=== PATIENT | female | born 1975 | race Asian ===

== ENCOUNTER → 2018-03-03 | Outpatient (CLI) | payer OTHER ==
[~2018-03-03] MED LIST: ATEN25TA PO; BACL-19 PO; DOCU100T PO; HYDR-3240 PO; LEVO125T PO; MULT-516 PO; TRIA0.2576 PO
== END | disposition home or self-care (01) ==
LOC: STAR 13:53
PROVIDERS: ATTEND Surgery
DX: Z02.9 Encounter for administrative examinations, unspecified (principal)

== ENCOUNTER 2018-03-08 07:25 | Inpatient (IN) | payer OTHER ==
[2018-03-03 14:19] VITALS: BP 108/77
[~2018-03-08] VITALS: Ht 162.6 cm; Wt 59.5 kg
[~2018-03-08 07:25] MED LIST changes: +BUPIVACAINE/PF-EPI 0.5% 1:200K ONE; -LEVO125T PO
[2018-03-08] MEDS ORDERED: LACTATED RINGERS 1,000 ML IV SCH (08:09)
[2018-03-08] MEDS ORDERED: LIDOCAINE-MPF 1%, 2ML ONE (08:18)
[2018-03-08] MEDS ORDERED: LIDOCAINE-MPF 1%, 2ML INFIL ONE (08:30)
[2018-03-08 08:38] LABS: HCG UR SG 1.011 (1.003-1.030)
[2018-03-08] MEDS ORDERED: PROPOFOL 50 ML ONE (09:27)
[2018-03-08] MEDS ORDERED: MIDAZOLAM 1 MG/ML, 2ML ONE ×2 (09:27→12:20)
[2018-03-08] MEDS ORDERED: FENTANYL PF 250 MCG/5ML ONE (09:27)
[2018-03-08] MEDS ORDERED: ONDANSETRON 2MG/ML, 2ML IV PRN ×2 (10:30→14:00)
[2018-03-08] MEDS ORDERED: ACETAMINOPHEN 325 MG TABLET PO PRN ×2 (10:30→13:30)
[2018-03-08] MEDS ORDERED: EPHEDRINE 50 MG/ML, 1ML IM PRN (10:30)
[2018-03-08] MEDS ORDERED: PROMETHAZINE 12.5 MG SUPP PR PRN (10:30)
[2018-03-08] MEDS ORDERED: MIDAZOLAM 1 MG/ML, 2ML IV PRN (10:30)
[2018-03-08] MEDS ORDERED: ONDANSETRON ODT 8 MG PO PRN (10:30)
[2018-03-08] MEDS ORDERED: PROCHLORPERAZINE 5 MG/ML, 2ML IV PRN (10:30)
[2018-03-08] MEDS ORDERED: DIPHENHYDRAMINE 50 MG/ML, 1ML IM PRN (10:30)
[2018-03-08] MEDS ORDERED: MORPHINE SULFATE 4 MG/ML, 1ML IVPush PRN (10:30)
[2018-03-08] MEDS ORDERED: PROMETHAZINE 25 MG/ML, 1ML IV PRN (10:30)
[2018-03-08] MEDS ORDERED: MEPERIDINE/PF 25MG/0.5ML IVPush PRN (10:30)
[2018-03-08] MEDS ORDERED: PROMETHAZINE 25 MG SUPP PR PRN (10:30)
[2018-03-08] MEDS ORDERED: FENTANYL PF 100 MCG/2ML IV PRN (10:30)
[2018-03-08] MEDS ORDERED: OXYcodone 5 MG/5 ML ORAL.SOL UDC ONE (12:03)
[2018-03-08] MEDS ORDERED: MORPHINE SULFATE 4 MG/ML, 1ML ONE (12:03)
[2018-03-08] MEDS ORDERED: OXYcodone 5 MG/5 ML ORAL.SOL UDC PO PRN (12:30)
[2018-03-08 13:15] VITALS: BP 136/86
[2018-03-08] MEDS ORDERED: ACETAMINOPHEN 650 MG SUPP PR PRN (13:30)
[2018-03-08] MEDS ORDERED: hydrALAzine 20 MG/ML, 1ML IV PRN (14:00)
[2018-03-08] MEDS ORDERED: ZOLPIDEM 5MG TABLET PO PRN (14:00)
[2018-03-08] MEDS: CALCIUM/VITAMIN D3 250-125 TABLET PO SCH ×2 (14:04→16:51)
[2018-03-08] MEDS: HYDROcodone/APAP 5/325 TABLET PO PRN ×2 (15:53→20:13)
[2018-03-08] MEDS ORDERED: SUCCINYLCHOLINE 20 MG/ML, 10ML ONE (16:16)
[2018-03-08] MEDS ORDERED: CEFAZOLIN 1,000 MG ONE (16:16)
[2018-03-08] MEDS ORDERED: PROPOFOL 10 MG/ML, 20ML ONE (16:16)
[2018-03-08] MEDS ORDERED: ROCURONIUM 10MG/ML,5ML ONE (16:16)
[2018-03-08] MEDS ORDERED: ONDANSETRON 2MG/ML, 2ML ONE (16:16)
[2018-03-08] MEDS ORDERED: DEXAMETHASONE 4 MG/ML, 1ML ONE (16:16)
[2018-03-08 18:48] VITALS: BP 96/61
[2018-03-08] MEDS: DOCUSATE 100 MG CAPSULE PO SCH (20:12)
[2018-03-08] MEDS: SODIUM CHLORIDE FLUSH 10ML SYR IVF SCH (20:13)
[2018-03-08] MEDS ORDERED: BACLOFEN 10 MG TABLET PO SCH (21:00)
[2018-03-08] MEDS ORDERED: ATENOLOL 25 MG TABLET PO SCH (21:00)
[2018-03-08 23:35] VITALS: BP 102/66
[2018-03-09 02:59] VITALS: BP 89/58
[2018-03-09] MEDS ORDERED: LEVOTHYROXINE 125 MCG TABLET PO SCH (06:00)
[2018-03-09 07:09] VITALS: BP 87/55
[2018-03-09] MEDS: DOCUSATE 100 MG CAPSULE PO SCH (07:49)
[2018-03-09] MEDS: CALCIUM/VITAMIN D3 250-125 TABLET PO SCH (07:49)
[2018-03-09] MEDS: HYDROcodone/APAP 5/325 TABLET PO PRN (07:49)
[2018-03-09] MEDS ORDERED: HYDR-3240 PO (08:59)
[2018-03-09] MEDS: SODIUM CHLORIDE FLUSH 10ML SYR IVF SCH (09:00)
[2018-03-09] MEDS ORDERED: LEVO125T PO (09:00)
[2018-03-09 09:43] VITALS: BP 96/64
[2018-03-09] MEDS ORDERED: ONDANSETRON 4 MG TABLET ONE (10:54)
[2018-03-09] MEDS ORDERED: ONDANSETRON 4 MG TABLET PO PRN (11:00)
== END 2018-03-09 10:50 | disposition home or self-care (01) | DRG 627 ==
LOC: OUT 07:25 → 4NOR 13:00 → OUT 13:47 → DCLOUNGE 03-09 10:27
PROVIDERS: ADMIT Surgery; ATTEND Surgery
PROC: 07T10ZZ Resection of Right Neck Lymphatic, Open Approach (ICD-10-PCS; 2018-03-08)
PROC: 4A11X4G Monitoring of Peripheral Nervous Electrical Activity, Intraoperative, External Approach (ICD-10-PCS; 2018-03-08)
PROC: 0GTK0ZZ Resection of Thyroid Gland, Open Approach (ICD-10-PCS; principal; 2018-03-08 09:45)
DX: C73 Malignant neoplasm of thyroid gland (principal); Z79.899 Other long term (current) drug therapy; Z80.42 Family history of malignant neoplasm of prostate; Z80.49 Family history of malignant neoplasm of other genital organs; Z82.49 Family history of ischemic heart disease and other diseases of the circulatory system; Z82.3 Family history of stroke; Z98.51 Tubal ligation status; Z87.891 Personal history of nicotine dependence
CPT/HCPCS: 36415; 81025; 82310; 83970; 88305; 88307; 88331; G0378; J0690; J1100; J2250; J2405; J2704; J3010; J3490; Q0162; C1760; J0330; J7120